=== PATIENT | male | born 1970 | race Native Hawaiian/Other Pacific Islander ===

== ENCOUNTER 2016-06-05 11:37 | Outpatient (CLI) | payer BC ==
[~2016-06-05 11:37] MED LIST: LORA0.5T17 PO; NEXIUM40 M1 PO
== END 2016-06-05 19:22 | disposition home or self-care (01) ==
LOC: RAD 11:37
DX: M54.12 Radiculopathy, cervical region (principal)

== ENCOUNTER 2019-07-18 07:41 | Outpatient (CLI) | payer OTHER | END 2019-07-18 19:34 | disposition home or self-care (01) | LOC: CT 07:41 | DX: J32.9 Chronic sinusitis, unspecified (principal) ==

== ENCOUNTER 2020-03-01 17:59 | Outpatient (CLI) | payer OTHER | END 2020-03-01 23:39 | disposition home or self-care (01) | LOC: RAD 17:59 | DX: U07.1 COVID-19 (principal) ==